=== PATIENT | female | born 1995 | race Two or more races ===

== ENCOUNTER 2017-05-02 21:55 | Emergency (ER) | payer SELFPAY ==
[~2017-05-02] VITALS: Ht 160 cm; Wt 62.0 kg
[2017-05-02 22:00] VITALS: BP 109/77
== END 2017-05-03 03:35 | disposition left against medical advice (07) ==
LOC: ER 22:00
DX: Z53.21 Procedure and treatment not carried out due to patient leaving prior to being seen by health care provider (principal)

== ENCOUNTER 2019-05-26 10:48 | Emergency (ER) | payer BC ==
[~2019-05-26] VITALS: Ht 160 cm; Wt 70.0 kg
[2019-05-26 12:15] LABS: CHLORIDE 110 mEq/L (98-107)
[2019-05-26 12:16] LABS: BASOPHILS % 0.7 % (0.0-2.0); EOSINOPHILS % 0.9 % (0.0-5.0); HEMATOCRIT. 39.8 % (36.0-48.0); HEMOGLOBIN. 13.1 g/dL (12.0-16.0); LYMPHOCYTES % 20.2 % (20.0-50.0); MEAN CORPUSCULAR HEMOGLOBIN 29.1 pg (28.0-32.0); MEAN CORPUSCULAR VOLUME 88.5 fL (81.0-99.0); MEAN PLATELET VOLUME 8.1 fl (7.4-10.4); MONOCYTES % 6.7 % (2.0-8.0); NEUTROPHILS % 71.5 % (40.0-76.0); PLATELET 271 x1000/uL (130-400); RED CELL DISTRIBUTION WIDTH 16.7 % (11.6-14.6)
[2019-05-26 12:27] LABS: B-HCG QUANTITATIVE < 1 mIU/mL (<3)
[2019-05-26 13:02] LABS: CLARITY URINE CLOUDY (CLEAR); COLOR URINE YELLOW (YELLOW); KETONES URINE NEGATIVE (NEGATIVE); LEUKOCYTE ESTERASE URINE NEGATIVE (NEGATIVE); NITRITE URINE NEGATIVE (NEGATIVE); OCCULT BLOOD URINE 3+ (NEGATIVE); PH URINE 8.5 (4.5-8.0); PROTEIN URINE TRACE (NEGATIVE); SPECIFIC GRAVITY URINE 1.019 (1.005-1.030)
[2019-05-26 13:50] VITALS: BP 121/76
== END 2019-05-26 15:11 | disposition home or self-care (01) ==
LOC: ER 11:27
DX: N93.8 Other specified abnormal uterine and vaginal bleeding (principal)
CPT/HCPCS: 36415; 76830; 76856; 80053; 81003; 81025; 84702; 85025; 86850; 86900; 99284

== ENCOUNTER 2019-09-05 08:18 | Emergency (ER) | payer BC ==
[~2019-09-05] VITALS: Ht 160 cm; Wt 80.0 kg
[2019-09-05] MEDS ORDERED: ACETAMINOPHEN 325MG TABLET PO ONE (08:45)
[2019-09-05] MEDS ORDERED: KETOROLAC 60MG/2ML VIAL IM ONE (09:30)
[2019-09-05 09:40] LABS: BASOPHILS % 0.7 % (0.0-2.0); EOSINOPHILS % 1.4 % (0.0-5.0); HEMOGLOBIN. 13.4 g/dL (12.0-16.0); LYMPHOCYTES % 29.5 % (20.0-50.0); MEAN CORPUSCULAR HEMOGLOBIN 29.8 pg (28.0-32.0); MEAN CORPUSCULAR VOLUME 88.8 fL (81.0-99.0); MEAN PLATELET VOLUME 8.3 fl (7.4-10.4); NEUTROPHILS % 60.4 % (40.0-76.0); PLATELET 281 x1000/uL (130-400); RED BLOOD CELL COUNT 4.51 mill/uL (4.2-5.4); RED CELL DISTRIBUTION WIDTH 15.1 % (11.6-14.6)
[2019-09-05 09:43] LABS: CHLORIDE 111 mEq/L (98-107)
[2019-09-05 13:06] LABS: HCG SCREEN NEGATIVE
[2019-09-05] MEDS ORDERED: IOHEXOL-350 100 ML BOTTLE ONE (14:44)
[2019-09-05 15:36] VITALS: BP 129/77
== END 2019-09-05 15:39 | disposition home or self-care (01) ==
LOC: ER 08:45
DX: R07.89 Other chest pain (principal)
CPT/HCPCS: 36415; 71045; 71275; 80053; 83880; 84484; 84703; 85025; 85379; 93005; 96372; 99285; J1885; Q9967

== ENCOUNTER 2022-07-02 03:42 | Emergency (ER) | payer SELFPAY ==
[~2022-07-02] VITALS: Ht 165.1 cm; Wt 77.1 kg
[2022-07-02] MEDS ORDERED: IBUPROFEN 600MG TABLET PO STA (06:03)
[2022-07-02] MEDS ORDERED: BO1 TP (07:58)
[2022-07-02 08:48] VITALS: BP 116/73
== END 2022-07-02 08:49 | disposition home or self-care (01) ==
LOC: ER 03:42
DX: S00.87XA Other superficial bite of other part of head, initial encounter (principal); W54.0XXA Bitten by dog, initial encounter; Y93.89 Activity, other specified; Y92.89 Other specified places as the place of occurrence of the external cause; Y99.8 Other external cause status
CPT/HCPCS: 99282; Z7610

== ENCOUNTER 2023-05-29 00:06 | Emergency (ER) | payer OTHER ==
[~2023-05-29] VITALS: Ht 162.6 cm; Wt 69.0 kg
[~2023-05-29 00:06] MED LIST: BO1 TP
[2023-05-29] MEDS ORDERED: ACETAMINOPHEN 325MG TABLET PO ONE (00:30)
[2023-05-29 00:46] VITALS: BP 145/91; PULSE 110; RESP 20; TEMP 98.5; O2SAT 100
== END 2023-05-29 00:52 | disposition left against medical advice (07) ==
LOC: ER 00:06
DX: M79.18 Myalgia, other site (principal); R07.89 Other chest pain; V98.8XXA Other specified transport accidents, initial encounter; Y93.89 Activity, other specified; Y92.89 Other specified places as the place of occurrence of the external cause; Y99.8 Other external cause status
CPT/HCPCS: 99283